=== PATIENT | female | born 1950 | race Caucasian/White ===

== ENCOUNTER → 2016-10-20 | Outpatient (REF) | payer MEDICARE, MEDICAID | LOC: M LAB REF 10-19 11:42 | PROVIDERS: ATTEND Internal Medicine Gastroenterology | DX: R19.7 Diarrhea, unspecified (principal) ==

== ENCOUNTER 2017-05-28 13:57 | Emergency (ER) | payer MEDICARE, MEDICAID ==
[~2017-05-28] VITALS: Ht 154.9 cm; Wt 78.3 kg
[2017-05-28] MEDS ORDERED: ASPI81TA18 (14:12)
[2017-05-28] MEDS ORDERED: METF500T4 (14:12)
[2017-05-28] MEDS ORDERED: PRAV20TA2 (14:12)
[2017-05-28] MEDS ORDERED: VITA200015 (14:12)
[2017-05-28] MEDS ORDERED: HYDR25TAB (14:12)
[2017-05-28] MEDS ORDERED: JANU100T (14:12)
[2017-05-28] MEDS ORDERED: SYNT50TA (14:12)
[2017-05-28 17:05] VITALS: BP 152/78
--- NOTE | 2017-05-29 06:11 | REP ---
LEFT LOWER EXTREMITY DUPLEX VEINS: HISTORY: Swelling. There are no filling defects in the deep venous system. The deep venous system is patent. A small hyperechoic area is present anterior to the tibia and fibula. This measures 2.6 x 1.1 x 2.8 cm. This may represent a small hematoma. IMPRESSION: 1. There is no deep venous thrombosis. 2. There is a small hyperechoic area measuring 2.8 cm in maximum dimension anterior to the tibia and fibula. This may represent a small hematoma. Signed by Medardo Dwyer MD 05/29/2017 08:23 A
== END 2017-05-28 17:06 | disposition home or self-care (01) ==
LOC: M ED 13:57
DX: S80.12XA Contusion of left lower leg, initial encounter (principal); E11.9 Type 2 diabetes mellitus without complications; I10 Essential (primary) hypertension; X58.XXXA Exposure to other specified factors, initial encounter; Y92.89 Other specified places as the place of occurrence of the external cause; Y93.89 Activity, other specified; Y99.9 Unspecified external cause status

== ENCOUNTER → 2017-06-08 | Outpatient (CLI) | payer MEDICARE, MEDICAID ==
[~2017-06-08] MED LIST: ASPI81TA18; HYDR25TAB; JANU100T; METF500T4; PRAV20TA2; SYNT50TA; VITA200015
--- NOTE | 2017-06-08 17:02 | REP ---
Right finger: Four views of a right finger are performed. There is no fracture or dislocation. No calcifications or foreign bodies. Mineralization joint spaces are normal. Impression: Negative right finger. Signed by Dio De Oliveira MD 06/08/2017 04:54 P
== END ==
LOC: M ADAMS 16:12
PROVIDERS: ATTEND Physician Assistant
DX: M79.644 Pain in right finger(s) (principal)

== ENCOUNTER 2018-08-30 12:36 | Emergency (ER) | payer MEDICARE, MEDICAID ==
[~2018-08-30] VITALS: Ht 154.9 cm; Wt 81.4 kg
[~2018-08-30 12:36] MED LIST changes: -ASPI81TA18; +ASPI81TA52
[2018-08-30] MEDS ORDERED: FIBE625T (13:32)
[2018-08-30 14:32] LABS: INFLUENZA A AMPLIFICATION POSITIVE (NEGATIVE); INFLUENZA B AMPLIFICATION NEGATIVE (NEGATIVE)
[2018-08-30] MEDS ORDERED: BENZ200C70 PO ×2 (15:29→15:30)
[2018-08-30] MEDS ORDERED: MUCI600T37 PO ×2 (15:29→15:30)
[2018-08-30] MEDS ORDERED: VENTAER INH (15:30)
[2018-08-30 15:40] VITALS: BP 139/74
--- NOTE | 2018-08-31 07:03 | REP ---
Chest x-ray: Two views. History: Cough. Chills. . Comparison study: Comparison chest x-ray July 28, 2011 . Findings: The lungs are well inflated and free of infiltrate. The pleural angles are sharp. The heart size is normal. Pulmonary vasculature is not increased. No significant bony abnormality is seen. Impression: Negative chest x-ray. Electronically Signed by Wilfrid Danielson MD 08/30/2018 03:13 P
== END 2018-08-30 15:41 | disposition home or self-care (01) ==
LOC: M ED 12:36
DX: J09.X2 Influenza due to identified novel influenza A virus with other respiratory manifestations (principal); Z87.891 Personal history of nicotine dependence; Z88.0 Allergy status to penicillin; Z88.5 Allergy status to narcotic agent; Z79.899 Other long term (current) drug therapy; Z79.84 Long term (current) use of oral hypoglycemic drugs; Z79.82 Long term (current) use of aspirin

== ENCOUNTER → 2018-11-02 | Outpatient (CLI) | payer MEDICARE, MEDICAID ==
[~2018-11-02] MED LIST changes: +AMMO12LO TOP; +BENZ200C70 PO; +CEFD1CAP8 PO; +ECOT81TA5 PO; +FIBE625T PO; +FLUT05CR TOP; -HYDR25TAB; +HYDR25TAB PO; -JANU100T; +JANU100T PO; -METF500T4; +METF500T4 PO; +MUCI600T37 PO; -PRAV20TA2; +PRAV20TA2 PO; -SYNT50TA; +SYNT50TA PO; +VENTAER INH; -VITA200015; +VITA200015 PO
--- NOTE | 2018-11-02 09:37 | REP ---
RIGHT UPPER QUADRANT ULTRASOUND: Real-time sonographic evaluation of the right upper quadrant was performed. There is an adherent stone or echogenic polyp along the inner gallbladder wall which does not move with changes in patient positioning measuring 7 x 5 mm. There is no gallbladder wall thickening. There is no intrahepatic or extrahepatic biliary dilatation. The common bile duct measures 6 mm. There is no pericholecystic fluid. There is diffuse increased echotexture suggesting a diffuse fibrofatty infiltration. No gross liver or pancreatic mass is seen. The pancreas is not optimally seen due to overlying bowel gas. Right kidney demonstrates no hydronephrosis with normal size 10 cm in length. IMPRESSION: Subcentimeter adherent stone or echogenic polyp along the inner wall of the gallbladder which is non-mobile measuring 7 x 5 mm. No gallbladder wall thickening or pericholecystic fluid. No biliary dilatation. Diffuse fibrofatty infiltration of the liver. Unreviewed
== END ==
LOC: M RAD 08:05
PROVIDERS: ATTEND Physician Assistant
DX: K80.20 Calculus of gallbladder without cholecystitis without obstruction (principal); K76.0 Fatty (change of) liver, not elsewhere classified

== ENCOUNTER → 2018-11-08 | Outpatient (CLI) | payer MEDICARE, MEDICAID | LOC: M LAB 11:57 | PROVIDERS: ATTEND Physician Assistant | DX: R94.5 Abnormal results of liver function studies (principal); K76.0 Fatty (change of) liver, not elsewhere classified ==

== ENCOUNTER → 2019-01-04 | Outpatient (REF) | payer MEDICARE, MEDICAID ==
[2019-01-04 13:32] LABS: ALBUMIN 3.9 GM/DL (3.2-5.2); BILIRUBIN,DIRECT 0.1 MG/DL (0.0-0.2); BILIRUBIN,TOTAL 0.3 MG/DL (0.2-1.0); CHOLESTEROL RISK RATIO 3.229 (<5)
== END ==
LOC: M LABDRWAD 12:14
PROVIDERS: ATTEND Student in an Organized Health Care Education/Training Program
DX: K58.9 Irritable bowel syndrome, unspecified (principal); K76.0 Fatty (change of) liver, not elsewhere classified; R85.0 Abnormal level of enzymes in specimens from digestive organs and abdominal cavity

== ENCOUNTER → 2019-01-05 | Outpatient (REF) | payer MEDICARE, MEDICAID | LOC: M LAB REF 13:27 | PROVIDERS: ATTEND Student in an Organized Health Care Education/Training Program | DX: R85.0 Abnormal level of enzymes in specimens from digestive organs and abdominal cavity (principal); K76.0 Fatty (change of) liver, not elsewhere classified; K58.0 Irritable bowel syndrome with diarrhea ==

== ENCOUNTER → 2019-03-19 | Outpatient (REF) | payer MEDICARE, MEDICAID ==
[~2019-03-19] MED LIST changes: +METF-791 PO; -METF500T4 PO
== END ==
LOC: M LABDRWAD 19:27
PROVIDERS: ATTEND Physician Assistant
DX: R85.0 Abnormal level of enzymes in specimens from digestive organs and abdominal cavity (principal)

== ENCOUNTER → 2019-03-29 | Outpatient (CLI) | payer MEDICARE, MEDICAID | LOC: M LABDRWAD 13:54 | PROVIDERS: ATTEND Physician Assistant | DX: R85.0 Abnormal level of enzymes in specimens from digestive organs and abdominal cavity (principal); K76.0 Fatty (change of) liver, not elsewhere classified; Z80.0 Family history of malignant neoplasm of digestive organs ==

== ENCOUNTER 2019-11-05 21:36 | Emergency (ER) | payer MEDICARE, MEDICAID ==
[~2019-11-05] VITALS: Ht 154.9 cm; Wt 75.4 kg
[~2019-11-05 21:36] MED LIST changes: -METF-791 PO; +METF-838 PO
--- NOTE | 2019-11-05 23:10 | REPVR ---
PROCEDURE INFORMATION: Exam: US Pelvis Limited, Transabdominal Exam date and time: 11/05/2019 10:56 PM Age: 69 years old Clinical indication: Abdominal pain; Lower abdomen; Prior surgery; Surgery date: 6+ months; Surgery type: Total hysterectomy, oophorectomy; Additional info: Lower abd pain TECHNIQUE: Imaging protocol: Real-time transabdominal pelvic ultrasound with image documentation. Limited exam. COMPARISON: CT ABD/PEL W/IV CONTRAST ONLY 11/02/2018 10:37 AM FINDINGS: Uterus/cervix: There has been a hysterectomy. Right adnexa: The right ovary has been removed. No right adnexal mass is noted. Left adnexa: The left ovary has been removed. No left adnexal mass is noted. Free fluid: No free fluid is seen in the pelvis. Bladder: The partially distended urinary bladder is unremarkable. Bilateral ureteral jets were visualized in the urinary bladder. IMPRESSION: Status post hysterectomy and bilateral oophorectomy. No acute sonographic abnormality seen in the pelvis. Electronically signed by: Omar Gustafson On 11/05/2019 23:10:19 PM
--- NOTE | 2019-11-06 | REPVR ---
PROCEDURE INFORMATION: Exam: CT Abdomen And Pelvis Without Contrast Exam date and time: 11/05/2019 11:22 PM Age: 69 years old Clinical indication: Abdominal pain; Flank; Right; Additional info: Hematuria with right CVA tenderness. R/O kidney stone. TECHNIQUE: Imaging protocol: Computed tomography of the abdomen and pelvis without contrast. Radiation optimization: All CT scans at this facility use at least one of these dose optimization techniques: automated exposure control; mA and/or kV adjustment per patient size (includes targeted exams where dose is matched to clinical indication); or iterative reconstruction. COMPARISON: CT ABD/PEL W/IV CONTRAST ONLY 11/02/2018 10:37 AM FINDINGS: Heart: No cardiomegaly or pericardial effusion. Lungs: There is mild atelectasis or scarring in the right middle lobe and inferior lingula. Diaphragm: There is mild eventration of the right hemidiaphragm. Liver: The liver measures less than 40 Hounsfield units and the attenuation of the liver measures more than 10 Hounsfield units lower compared to the attenuation of the spleen, which is compatible with fatty liver infiltration. No liver lesion is seen. The contour of the liver is smooth. No hepatomegaly is noted. Gallbladder and bile ducts: There are calcified gallstones in the distal portion of the gallbladder. No gallbladder wall thickening, pericholecystic fluid, or inflammatory fat stranding is noted around the gallbladder. No dilation of the bile ducts is noted. No calcified stones are seen in the common bile duct. Pancreas: Unremarkable. No dilation of the main pancreatic duct is noted. There is no inflammatory fat stranding around the pancreas to suggest acute pancreatitis. Spleen: Unremarkable. No splenomegaly is noted. Incidental note is made of a small accessory spleen. Adrenals: Normal. No adrenal mass is noted. Kidneys and ureters: There is an 8 mm calculus in the left renal pelvis and a 9 mm calculus in a superior pole calyx of the left kidney. No stones are noted in the right kidney or in the ureters. There is no hydronephrosis or hydroureter. No renal lesion is identified. Stomach and bowel: The stomach and small bowel are unremarkable. There is no evidence for a bowel obstruction, colitis, perforated viscus, pneumatosis intestinalis, intussusception, or volvulus. There is a moderate amount of formed stool in the ascending colon and transverse colon and a mild amount of formed stool in the descending colon and sigmoid colon. There is mild sigmoid diverticulosis without evidence for diverticulitis. Appendix: Normal. There is no evidence for appendicitis. Intraperitoneal space: No free air. No ascites. No asbcess. Retroperitoneal space: No fluid collection. No mass. Vasculature: There is no abdominal aortic aneurysm or intramural hematoma. There are mild to moderate atherosclerotic calcifications. Incidental note is made of small round calcifications in the pelvis, which are compatible with phleboliths. Lymph nodes: No enlarged lymph nodes. Bladder: The distended urinary bladder is normal in appearance. No stones or masses are seen in the bladder. Reproductive: There has been a hysterectomy and bilateral oophorectomy. No adnexal mass is noted. Bones/joints: No fracture or dislocation is noted. There is no suspicious osteolytic or osteoblastic lesion. There is ossification of the posterior longitudinal ligament at the T9 level, which causes mild to moderate spinal canal stenosis at this level that is similar in appearance compared to the prior CT abdomen and pelvis on 11/02/2018. Soft tissues: There is a tiny fat containing umbilical hernia. There is a small fat containing midline ventral hernia located approximately 3 cm above the umbilicus. These hernias are similar in appearance compared to the prior CT abdomen and pelvis on 11/02/2018. IMPRESSION: 1. 8 mm calculus in the left renal pelvis and a 9 mm calculus in a superior pole calyx of the left kidney. No stones in the right kidney or in the ureters. No hydronephrosis or hydroureter. 2. Cholelithiasis without CT evidence for acute cholecystitis. 3. Tiny fat containing umbilical hernia and a small fat containing midline ventral hernia located approximately 3 cm above the umbilicus, which are similar in appearance compared to the prior CT abdomen and pelvis on 11/02/2018. 4. Fatty liver. 5. Mild sigmoid diverticulosis without evidence for diverticulitis. 6. Ossification of the posterior longitudinal ligament at the T9 level, which causes mild to moderate spinal canal stenosis at this level that is similar in appearance compared to the prior CT abdomen and pelvis on 11/02/2018. Electronically signed by: Omar Gustafson On 11/05/2019 23:59:53 PM
[2019-11-06 00:46] VITALS: BP 158/80
--- NOTE | 2019-11-06 12:34 | ED PDOC ---
Post-Departure Follow-Up dr cata baer faxed formal report of ct abd/p for fu Yeimi Hernandez MD November 06, 2019 12:34
== END 2019-11-06 00:48 | disposition home or self-care (01) ==
LOC: M ED 21:36
DX: N20.0 Calculus of kidney (principal); E11.9 Type 2 diabetes mellitus without complications; Z79.4 Long term (current) use of insulin; I10 Essential (primary) hypertension; E03.9 Hypothyroidism, unspecified; E78.5 Hyperlipidemia, unspecified; Z87.442 Personal history of urinary calculi; Z90.710 Acquired absence of both cervix and uterus; Z79.899 Other long term (current) drug therapy; Z88.1 Allergy status to other antibiotic agents; Z88.6 Allergy status to analgesic agent

== ENCOUNTER → 2019-11-14 | Outpatient (CLI) | payer MEDICARE, MEDICAID ==
--- NOTE | 2019-11-14 11:38 | REP ---
KUB ABDOMEN AND PELVIS: Two KUB films of the abdomen and pelvis performed. There is an 8 mm calcification overlying the upper pole of the left kidney. There is a 9 mm calcification overlying the lower pole of the left kidney. No calcifications are seen overlying the right kidney. Two phleboliths are seen in the right pelvis. There are degenerative changes of the spine. IMPRESSION: There appears to be an intrarenal calculus in the upper pole of the left kidney and another in the lower pole of the left kidney. Electronically Signed by Dio Vargas MD 11/14/2019 02:55 P
== END ==
LOC: M ADAMS 10:37
DX: N20.0 Calculus of kidney (principal)

== ENCOUNTER → 2020-01-04 | Outpatient (CLI) | payer MEDICARE, MEDICAID | LOC: M LABSMTC 11:50 | PROVIDERS: ATTEND Urology | DX: Z11.59 Encounter for screening for other viral diseases (principal) | CPT/HCPCS: C9803; U0003 ==

== ENCOUNTER → 2020-07-17 | Outpatient (CLI) | payer OTHER, MEDICAID ==
[~2020-07-17] MED LIST changes: +HYDR-3490 PO; -HYDR25TAB PO
--- NOTE | 2020-07-17 14:22 | REP ---
INDICATION: CALCULUS OF KIDNEY. COMPARISON: 11/14/2019. TECHNIQUE: AP views of abdomen and pelvis performed. FINDINGS: Bowel gas pattern is normal with no obstruction. A somewhat linear calcification has irregular margins and it projects over the superior left renal shadow, unchanged since the prior exam. No calcifications are visualized overlying the right renal shadow. Phleboliths are seen in the right pelvis. There are mild vascular calcifications in the pelvis. There are degenerative changes of the spine and hips. IMPRESSION: Somewhat linear calcification again projects over the upper left renal shadow, unchanged since the prior exam. No other calcifications are seen overlying either renal shadow. <Electronically signed by Dio Vargas > 07/17/20 [id number]
== END ==
LOC: M ADAMS 11:50
PROVIDERS: ATTEND Urology
DX: N20.0 Calculus of kidney (principal); E87.1 Hypo-osmolality and hyponatremia; I10 Essential (primary) hypertension

== ENCOUNTER → 2020-07-17 | Outpatient (REF) | payer MEDICAID, MEDICARE, OTHER ==
[2020-07-17 18:57] LABS: GLOMERULAR FILTRATION RATE 58.2 (>39); POTASSIUM SERUM 3.8 MEQ/L (3.5-5.1)
== END ==
LOC: M LABDRWAD 16:41
PROVIDERS: ATTEND Family Medicine
DX: E87.1 Hypo-osmolality and hyponatremia (principal); I10 Essential (primary) hypertension

== ENCOUNTER → 2021-02-09 | Outpatient (REF) | payer MEDICARE, OTHER ==
[~2021-02-09] MED LIST changes: -CEFD1CAP8 PO; +CEFD300C41 PO
[2021-02-09 13:20] LABS: BILIRUBIN,DIRECT 0.2 MG/DL (0.0-0.2); BILIRUBIN,TOTAL 0.5 MG/DL (0.2-1.0); TOTAL PROTEIN 7.1 GM/DL (6.4-8.2)
== END ==
LOC: M LABDRWAD 12:17
PROVIDERS: ATTEND Internal Medicine Gastroenterology
DX: K76.0 Fatty (change of) liver, not elsewhere classified (principal)

== ENCOUNTER 2021-12-12 06:33 | Emergency (ER) | payer MEDICARE ==
[~2021-12-12] VITALS: Ht 154.9 cm; Wt 76.0 kg
[2021-12-12 07:56] LABS: BASO % 0.5 % (0.0-1.0); EOS # 0.5 10^3/uL (0.0-0.5); EOS % 7.3 % (0.0-3.0); HEMATOCRIT 41.4 % (36.0-47.0); HEMOGLOBIN 13.6 g/dl (12.0-15.5); LYMPH # 1.6 10^3/uL (1.5-5.0); LYMPH % 25.4 % (24.0-44.0); MEAN CORPUSCULAR HEMOGLOBIN 30.1 pg (27.0-33.0); MEAN CORPUSCULAR HGB CONC 32.9 g/dl (32.0-36.5); MEAN CORPUSCULAR VOLUME 91.6 fl (80.0-96.0); MONO # 0.6 10^3/uL (0.0-0.8); NEUTROPHILS # 3.5 10^3/uL (1.5-8.5); NEUTROPHILS % 56.3 % (36.0-66.0); PLATELET COUNT, AUTOMATED 204 10^3/uL (150-450); RED BLOOD COUNT 4.52 10^6/uL (4.00-5.40); WHITE BLOOD COUNT 6.3 10^3/uL (4.0-10.0)
[2021-12-12 08:21] LABS: BLOOD UREA NITROGEN 18 MG/DL (7-18); CALCIUM LEVEL 9.2 MG/DL (8.8-10.2); CARBON DIOXIDE LEVEL 25 MEQ/L (21-32); CHLORIDE LEVEL 111 MEQ/L (98-107); CREATININE FOR GFR 0.79 MG/DL (0.55-1.30); GLOMERULAR FILTRATION RATE > 60.0 (>39); GLUCOSE, FASTING 197 MG/DL (70-100); POTASSIUM SERUM 3.9 MEQ/L (3.5-5.1); SODIUM LEVEL 144 MEQ/L (136-145)
[2021-12-12] MEDS ORDERED: KETOROLAC 30 MG/ML 1ML VIAL IV ONE (12:35)
[2021-12-12] MEDS ORDERED: FLOM0.4C39 PO (14:27)
[2021-12-12] MEDS ORDERED: HYDR-3713 PO (14:27)
[2021-12-12 15:04] VITALS: BP 163/79
== END 2021-12-12 15:08 | disposition home or self-care (01) ==
LOC: M ED 06:33
DX: N20.1 Calculus of ureter (principal); E11.9 Type 2 diabetes mellitus without complications; E07.9 Disorder of thyroid, unspecified; K58.9 Irritable bowel syndrome, unspecified; Z87.442 Personal history of urinary calculi; Z79.899 Other long term (current) drug therapy; Z79.82 Long term (current) use of aspirin; Z79.84 Long term (current) use of oral hypoglycemic drugs; Z88.0 Allergy status to penicillin; Z88.5 Allergy status to narcotic agent; Z88.8 Allergy status to other drugs, medicaments and biological substances
CPT/HCPCS: 74176; 80048; 81001; 85025; 96374; 99284; J1885

== ENCOUNTER → 2022-02-01 | Outpatient (CLI) | payer MEDICARE, MEDICAID ==
[~2022-02-01] MED LIST changes: +FLOM0.4C39 PO; +HYDR-3713 PO
[2022-02-01 18:04] LABS: BASO # 0.1 10^3/uL (0.0-0.2); BASO % 0.7 % (0.0-1.0); EOS # 0.8 10^3/uL (0.0-0.5); EOS % 8.3 % (0.0-3.0); HEMATOCRIT 43.7 % (36.0-47.0); HEMOGLOBIN 14.3 g/dl (12.0-15.5); LYMPH # 2.8 10^3/uL (1.5-5.0); LYMPH % 27.8 % (24.0-44.0); MEAN CORPUSCULAR HEMOGLOBIN 29.2 pg (27.0-33.0); MEAN CORPUSCULAR HGB CONC 32.7 g/dl (32.0-36.5); MEAN CORPUSCULAR VOLUME 89.4 fl (80.0-96.0); MONO % 9.7 % (2.0-8.0); NEUTROPHILS # 5.3 10^3/uL (1.5-8.5); NEUTROPHILS % 53.2 % (36.0-66.0); PLATELET COUNT, AUTOMATED 232 10^3/uL (150-450); RED BLOOD COUNT 4.89 10^6/uL (4.00-5.40); WHITE BLOOD COUNT 9.9 10^3/uL (4.0-10.0)
== END ==
LOC: M RAD 16:58
PROVIDERS: ATTEND Family Medicine
DX: M25.552 Pain in left hip (principal)

== ENCOUNTER → 2022-02-02 | Outpatient (CLI) | payer MEDICARE, MEDICAID | LOC: M RAD 11:07 | PROVIDERS: ATTEND Family Medicine | DX: R10.2 Pelvic and perineal pain (principal); Z90.710 Acquired absence of both cervix and uterus; Z90.722 Acquired absence of ovaries, bilateral ==

== ENCOUNTER → 2022-03-01 | Outpatient (REF) | payer MEDICARE, MEDICAID ==
[2022-03-01 17:02] LABS: BASO # 0.1 10^3/uL (0.0-0.2); BASO % 0.6 % (0.0-1.0); EOS # 0.4 10^3/uL (0.0-0.5); EOS % 3.8 % (0.0-3.0); HEMATOCRIT 47.2 % (36.0-47.0); HEMOGLOBIN 15.6 g/dl (12.0-15.5); LYMPH # 2.7 10^3/uL (1.5-5.0); LYMPH % 25.3 % (24.0-44.0); MEAN CORPUSCULAR HEMOGLOBIN 29.8 pg (27.0-33.0); MEAN CORPUSCULAR HGB CONC 33.1 g/dl (32.0-36.5); MEAN CORPUSCULAR VOLUME 90.2 fl (80.0-96.0); MONO % 9.7 % (2.0-8.0); NEUTROPHILS # 6.3 10^3/uL (1.5-8.5); NEUTROPHILS % 60.2 % (36.0-66.0); PLATELET COUNT, AUTOMATED 270 10^3/uL (150-450); RED BLOOD COUNT 5.23 10^6/uL (4.00-5.40); WHITE BLOOD COUNT 10.5 10^3/uL (4.0-10.0)
[2022-03-01 17:35] LABS: ALBUMIN 4.3 GM/DL (3.2-5.2); BILIRUBIN,TOTAL 0.8 MG/DL (0.2-1.0); CALCIUM LEVEL 10.1 MG/DL (8.8-10.2); CHOLESTEROL RISK RATIO 2.048 (<5); CREATININE FOR GFR 1.03 MG/DL (0.55-1.30); GLOMERULAR FILTRATION RATE 56.1 (>39); POTASSIUM SERUM 3.8 MEQ/L (3.5-5.1); TOTAL PROTEIN 7.9 GM/DL (6.4-8.2)
== END ==
LOC: M LABDRWAD 16:29
PROVIDERS: ATTEND Physician Assistant Surgical
DX: E78.5 Hyperlipidemia, unspecified (principal); I10 Essential (primary) hypertension

== ENCOUNTER → 2022-03-01 | Outpatient (CLI) | payer MEDICARE, MEDICAID | LOC: M ADAMS 14:17 | PROVIDERS: ATTEND Urology | DX: N20.0 Calculus of kidney (principal) ==

== ENCOUNTER → 2022-03-07 | Outpatient (REF) | payer MEDICARE, MEDICAID ==
[2022-03-07 14:17] LABS: APPEARANCE, URINE MANUAL HAZY (CLEAR); COLOR, URINE MANUAL YELLOW (YELLOW)
[2022-03-07 14:18] LABS: BILIRUBIN, URINE MANUAL NEGATIVE (NEGATIVE); GLUCOSE, URINE (UA) MANUAL 4+(1000 MG/DL) mg/dL (NEGATIVE); KETONE, URINE MANUAL 2+ mg/dL (NEGATIVE); NITRITE, URINE MANUAL NEGATIVE (NEGATIVE); PH,URINE MAN 5.5 UNITS (5.0 - 7.0); SPECIFIC GRAVITY,URINE MANUAL 1.015 (1.002-1.035); UROBILINOGEN, URINE MANUAL NORMAL (NORMAL)
[2022-03-07 14:19] LABS: BLOOD URINE MANUAL TRACE (NEGATIVE)
[2022-03-07 14:20] LABS: LEUKOCYTE ESTERASE, URINE MAN TRACE (NEGATIVE); PROTEIN, URINE MANUAL TRACE mg/dL (NEGATIVE)
[2022-03-07 14:28] LABS: BACTERIA, URINE SMALL AMOUNT; HYALINE CAST, URINE NONE SEEN /lpf (0-1)
[2022-03-07 14:29] LABS: MUCUS, URINE SMALL AMOUNT (NEGATIVE); SQUAMOUS EPITHELIAL CELL URINE MOD AMOUNT /hpf (SMALL AMT)
[2022-03-07 14:31] LABS: AMORPHOUS SEDIMENT, URINE SMALL AMOUNT (NEGATIVE)
== END ==
LOC: M LABDRWAD 13:21
PROVIDERS: ATTEND Urology
DX: R82.998 Other abnormal findings in urine (principal); Z79.899 Other long term (current) drug therapy

== ENCOUNTER → 2022-04-14 | Outpatient (CLI) | payer MEDICARE, MEDICAID | LOC: M ADAMS 14:13 | PROVIDERS: ATTEND Urology | DX: N20.0 Calculus of kidney (principal) ==

== ENCOUNTER → 2022-05-16 | Outpatient (CLI) | payer MEDICARE, MEDICAID | LOC: M ADAMS 11:43 | PROVIDERS: ATTEND Registered Nurse Emergency | DX: N20.0 Calculus of kidney (principal) ==

== ENCOUNTER 2022-11-06 16:53 | Emergency (ER) | payer OTHER, MEDICARE, MEDICAID ==
[~2022-11-06] VITALS: Ht 154.9 cm; Wt 68.8 kg
[2022-11-06 16:54] VITALS: BP 140/67
[2022-11-06] MEDS ORDERED: ACETAMINOPHEN 500 MG TAB PO ONE (20:35)
[2022-11-06] MEDS ORDERED: LIDOCAINE 5% (LIDODERM) PATCH TD ONE (20:35)
== END 2022-11-06 23:37 | disposition home or self-care (01) ==
LOC: M ED 16:53
DX: S32.040A Wedge compression fracture of fourth lumbar vertebra, initial encounter for closed fracture (principal); V43.52XA Car driver injured in collision with other type car in traffic accident, initial encounter; Y92.410 Unspecified street and highway as the place of occurrence of the external cause; I10 Essential (primary) hypertension; E78.5 Hyperlipidemia, unspecified; Z87.442 Personal history of urinary calculi; E03.9 Hypothyroidism, unspecified; Z88.5 Allergy status to narcotic agent; Z88.0 Allergy status to penicillin; Z79.899 Other long term (current) drug therapy; Z79.84 Long term (current) use of oral hypoglycemic drugs; Z79.82 Long term (current) use of aspirin

== ENCOUNTER → 2023-01-06 | Outpatient (CLI) | payer OTHER, MEDICARE, MEDICAID | LOC: M PLARAD 14:12 | PROVIDERS: ATTEND Physician Assistant Surgical | DX: M47.816 Spondylosis without myelopathy or radiculopathy, lumbar region (principal) ==

== ENCOUNTER → 2023-03-06 | Outpatient (CLI) | payer OTHER, MEDICARE, MEDICAID ==
[2023-03-06 12:09] LABS: APPEARANCE, URINE CLEAR (CLEAR); BACTERIA, URINE AUTO NEGATIVE (NEGATIVE); BILIRUBIN, URINE AUTO NEGATIVE (NEGATIVE); BLOOD, URINE BLOOD NEGATIVE (NEGATIVE); COLOR, URINE YELLOW (YELLOW); GLUCOSE, URINE (UA) AUTO 3+ mg/dL (NEGATIVE); KETONE, URINE AUTO NEGATIVE (NEGATIVE); LEUKOCYTE ESTERASE, URINE AUTO NEGATIVE (NEGATIVE); NITRITE, URINE AUTO NEGATIVE (NEGATIVE); PROTEIN, URINE AUTO NEGATIVE (NEGATIVE); RBC, URINE AUTO 0 /HPF (0-3); SPECIFIC GRAVITY URINE AUTO 1.022 (1.002-1.035); SQUAMOUS EPITHELIAL CELL UR AU 0 /HPF (0-6); UROBILINOGEN, URINE AUTO 0.2 mg/dL (0.0-2.0); WBC, URINE AUTO 2 /HPF (0-3)
[2023-03-06 12:15] LABS: BASO % 0.6 % (0.0-1.0); EOS # 0.3 10^3/uL (0.0-0.5); HEMATOCRIT 47.2 % (36.0-47.0); HEMOGLOBIN 15.2 g/dl (12.0-15.5); LYMPH # 2.1 10^3/uL (1.5-5.0); LYMPH % 28.7 % (24.0-44.0); MEAN CORPUSCULAR HEMOGLOBIN 29.2 pg (27.0-33.0); MEAN CORPUSCULAR HGB CONC 32.2 g/dl (32.0-36.5); MEAN CORPUSCULAR VOLUME 90.6 fl (80.0-96.0); MONO # 0.7 10^3/uL (0.0-0.8); MONO % 9.5 % (2.0-8.0); NEUTROPHILS # 4.1 10^3/uL (1.5-8.5); NEUTROPHILS % 57.1 % (36.0-66.0); PLATELET COUNT, AUTOMATED 254 10^3/uL (150-450); RED BLOOD COUNT 5.21 10^6/uL (4.00-5.40); WHITE BLOOD COUNT 7.2 10^3/uL (4.0-10.0)
[2023-03-06 12:59] LABS: THYROID STIMULATING HORMONE 2.378 uIU/ML (0.55-4.78)
[2023-03-06 13:28] LABS: ALBUMIN 4.1 G/DL (3.2-5.2); ALKALINE PHOSPHATASE 102 U/L (46-116); ALT/SGPT 28 U/L (7.0-40); AST/SGOT 15 U/L (<34); BILIRUBIN,TOTAL 0.8 MG/DL (0.3-1.2); BLOOD UREA NITROGEN 20 MG/DL (9-23); CALCIUM LEVEL 9.7 MG/DL (8.3-10.6); CARBON DIOXIDE LEVEL 29 MMOL/L (20-31); CHLORIDE LEVEL 101 MMOL/L (98-107); CREATININE FOR GFR 0.87 MG/DL (0.55-1.30); GLOMERULAR FILTRATION RATE > 60.0 (>39); GLUCOSE, FASTING 179 MG/DL (74-106); POTASSIUM SERUM 3.7 MMOL/L (3.5-5.1); SODIUM LEVEL 141 MMOL/L (136-145); TOTAL PROTEIN 7.2 G/DL (5.7-8.2)
[2023-03-06 14:04] LABS: HEMOGLOBIN A1c 7.5 % (4.0-6.0)
== END ==
LOC: M WUC 09:31
PROVIDERS: ATTEND Family Medicine
DX: E11.40 Type 2 diabetes mellitus with diabetic neuropathy, unspecified (principal); E03.9 Hypothyroidism, unspecified; I10 Essential (primary) hypertension; E78.5 Hyperlipidemia, unspecified

== ENCOUNTER → 2023-04-20 | Outpatient (REF) | payer OTHER, MEDICARE, MEDICAID ==
[~2023-04-20] MED LIST changes: -CEFD300C41 PO; +CEFD300C42 PO
== END ==
LOC: M SFHCWAGY 17:28
PROVIDERS: ATTEND Nurse Practitioner Family
DX: Z12.4 Encounter for screening for malignant neoplasm of cervix (principal)
CPT/HCPCS: 87624; G0123

== ENCOUNTER → 2023-05-15 | Outpatient (CLI) | payer OTHER, MEDICARE, MEDICAID | LOC: M RAD 11:18 | PROVIDERS: ATTEND Physician Assistant | DX: M47.816 Spondylosis without myelopathy or radiculopathy, lumbar region (principal) ==

== ENCOUNTER → 2024-04-23 | Outpatient (CLI) | payer OTHER, MEDICARE, MEDICAID ==
[~2024-04-23] MED LIST changes: +CEFD1CAP9 PO; -CEFD300C42 PO
== END ==
LOC: M RAD 13:30
PROVIDERS: ATTEND Physician Assistant
DX: M54.50 Low back pain, unspecified (principal)

== ENCOUNTER → 2024-05-02 | Outpatient (REF) | payer MEDICARE, MEDICAID, OTHER ==
[2024-05-06 23:42] LABS: HPV VAGINAL Not Detected (NOT DETECT)
== END ==
LOC: M SFHCWAGY 17:28
PROVIDERS: ATTEND Nurse Practitioner Family
DX: Z12.72 Encounter for screening for malignant neoplasm of vagina (principal); N95.2 Postmenopausal atrophic vaginitis
CPT/HCPCS: 87624; G0123

== ENCOUNTER → 2025-02-07 | Outpatient (CLI) | payer MEDICARE, MEDICAID ==
[~2025-02-07] MED LIST changes: -FLOM0.4C39 PO; -PRAV20TA2 PO; +PRAV20TA78 PO; +TAMS-18 PO
== END ==
LOC: M RAD 14:20
PROVIDERS: ATTEND Physician Assistant
DX: M79.662 Pain in left lower leg (principal); R22.42 Localized swelling, mass and lump, left lower limb

== ENCOUNTER → 2025-04-07 | Outpatient (REF) | payer MEDICARE, MEDICAID | LOC: M LAB REF 16:23 | PROVIDERS: ATTEND Surgery | DX: D22.5 Melanocytic nevi of trunk (principal) ==

== ENCOUNTER 2025-04-19 02:33 | Emergency (ER) | payer MEDICARE, MEDICAID ==
[~2025-04-19] VITALS: Ht 154.9 cm; Wt 72.1 kg
[2025-04-19] MEDS ORDERED: GLIM4TAB5 PO (02:41)
[2025-04-19] MEDS ORDERED: JARD1TAB3 PO (02:41)
[2025-04-19 03:34] LABS: SP GRAVITY,URINE MANUAL REFLEX 1.015 (1.002-1.035)
[2025-04-19 03:36] LABS: KETONE, URINE MANUAL REFLEX 1+ mg/dL (NEGATIVE); NITRITE, URINE MANUAL RFX NEGATIVE (NEGATIVE); PROTEIN, URINE MANUAL REFLEX 3+ mg/dL (NEGATIVE); UROBILINOGEN, UA MANUAL REFLEX NORMAL (NORMAL)
[2025-04-19 03:40] LABS: RBC, URINE MAN REFLEX TNTC /hpf (0-3); SQUAMOUS EPITHELIAL URINE RFX SMALL AMOUNT /hpf (SMALL AMT)
[2025-04-19 03:41] LABS: HYALINE CAST, URINE RFX NONE SEEN /lpf (0-1); MICROSCOPIC EXAM RFX PERFORMED
[2025-04-19 03:45] LABS: BASO # 0.1 10^3/uL (0.0-0.2); BASO % 0.5 % (0.0-1.0); EOS # 0.3 10^3/uL (0.0-0.5); EOS % 2.8 % (0.0-3.0); LYMPH # 2.4 10^3/uL (1.5-5.0); LYMPH % 22.7 % (24.0-44.0); MONO # 1.0 10^3/uL (0.0-0.8); MONO % 9.9 % (2.0-8.0); NEUTROPHILS # 6.7 10^3/uL (1.5-8.5); NEUTROPHILS % 63.9 % (36.0-66.0); PLATELET COUNT, AUTOMATED 234 10^3/uL (150-450)
[2025-04-19 04:10] LABS: ALT/SGPT 37.0 U/L (7.0-40); AST/SGOT 21.0 U/L (<34); CALCIUM LEVEL 10.4 MG/DL (8.3-10.6); CARBON DIOXIDE LEVEL 30.0 MMOL/L (20-31); CHLORIDE LEVEL 100.0 MMOL/L (98-107); CREATININE FOR GFR 0.81 MG/DL (0.55-1.30); GLOMERULAR FILTRATION RATE 75.7 (>39); POTASSIUM SERUM 4.0 MMOL/L (3.5-5.1); SODIUM LEVEL 139.0 MMOL/L (136-145)
[2025-04-19] MEDS: ACETAMINOPHEN 500 MG TAB PO ONE (08:36)
[2025-04-19 10:50] VITALS: TEMP 96.3
[2025-04-19] MEDS ORDERED: CEFD300C PO (11:48)
[2025-04-19] MEDS: cefTRIAXone SOD 1 GM in DEXTROSE 5% (D5W) ADV/MINI-BAG 50 ML IV ONE (12:00)
[2025-04-19] MEDS: ONDANSETRON 4MG/2ML VIAL IV ONE (12:00)
[2025-04-19 13:00] VITALS: BP 124/55; O2SAT 95
[2025-04-19] MEDS ORDERED: PYRI1TAB5 PO (13:05)
[2025-04-19] MEDS ORDERED: ONDA-282 PO (14:25)
== END 2025-04-19 13:16 | disposition home or self-care (01) ==
LOC: M ED 02:33
DX: N39.0 Urinary tract infection, site not specified (principal); R79.89 Other specified abnormal findings of blood chemistry; R93.89 Abnormal findings on diagnostic imaging of other specified body structures; K76.0 Fatty (change of) liver, not elsewhere classified; E11.9 Type 2 diabetes mellitus without complications; I10 Essential (primary) hypertension; E78.5 Hyperlipidemia, unspecified; E03.9 Hypothyroidism, unspecified; Z88.1 Allergy status to other antibiotic agents; Z88.5 Allergy status to narcotic agent; Z79.1 Long term (current) use of non-steroidal anti-inflammatories (NSAID); Z79.2 Long term (current) use of antibiotics; Z79.84 Long term (current) use of oral hypoglycemic drugs; Z79.899 Other long term (current) drug therapy
CPT/HCPCS: 74176; 80048; 80076; 81000; 81015; 83605; 83690; 85025; 87086; 96365; 96375; 99284; J0696; J2405

== ENCOUNTER → 2025-05-06 | Outpatient (REF) | payer MEDICARE, MEDICAID ==
[~2025-05-06] MED LIST changes: +CEFD300C PO; +GLIM4TAB5 PO; +JARD1TAB3 PO; +ONDA-282 PO; +PYRI1TAB5 PO
== END ==
LOC: M SFHCWAGY 16:51
PROVIDERS: ATTEND Obstetrics & Gynecology
DX: Z87.440 Personal history of urinary (tract) infections (principal); N39.0 Urinary tract infection, site not specified

== ENCOUNTER → 2025-05-15 | Outpatient (CLI) | payer MEDICARE, MEDICAID | LOC: M ADAMS 14:19 | PROVIDERS: ATTEND Internal Medicine Rheumatology | DX: M79.651 Pain in right thigh (principal) ==